=== PATIENT | female | born 1980 | race Caucasian/White ===

== ENCOUNTER 2017-08-31 15:45 | Outpatient (CLI) | payer BC, OTHER | END 2017-08-31 15:46 | disposition home or self-care (01) | LOC: FCC-LAB 15:45 | PROVIDERS: ATTEND Nurse Practitioner Family | DX: E75.6 Lipid storage disorder, unspecified (principal); I10 Essential (primary) hypertension | CPT/HCPCS: 36415; 80053; 80061; 85025 ==